=== PATIENT | female | born 2000 | race Caucasian/White ===

== ENCOUNTER 2019-01-02 06:45 | Emergency (ER) | payer OTHER ==
[~2019-01-02] VITALS: Ht 172.7 cm; Wt 71.7 kg
[2019-01-02] MEDS ORDERED: NS 1,000 ML IV ONE (07:15)
[2019-01-02 07:45] LABS: BASO # 0.1 10^3/uL (0.0-0.2); BASO % 1.2 % (0.0-1.0); EOS # 0.4 10^3/uL (0.0-0.50); EOS % 5.7 % (0.0-3.0); HEMATOCRIT 39.9 % (36.0-47.0); HEMOGLOBIN 13.2 g/dl (12.0-15.5); LYMPH # 2.3 10^3/uL (1.5-6.5); MEAN CORPUSCULAR HEMOGLOBIN 28.9 pg (27.0-33.0); MEAN CORPUSCULAR HGB CONC 33.1 g/dl (32.0-36.5); MEAN CORPUSCULAR VOLUME 87.3 fl (80.0-96.0); MONO # 0.5 10^3/uL (0.0-0.8); MONO % 6.5 % (0.0-5.0); NEUTROPHILS # 4.1 10^3/uL (1.8-7.7); NEUTROPHILS % 55.2 % (36.0-66.0); PLATELET COUNT, AUTOMATED 234 10^3/uL (150-450); RED BLOOD COUNT 4.57 10^6/uL (4.00-5.40); WHITE BLOOD COUNT 7.4 10^3/uL (4.0-10.0)
--- NOTE | 2019-01-02 08:01 | REP ---
Chest x-ray: Two views. History: Chest pain. Findings: The lungs are well inflated and clear. No infiltrate is seen. Pleural angles are sharp. Heart size is normal. No significant bony abnormality is appreciated. Impression: Negative chest x-ray. Electronically Signed by Juno Moore MD 01/02/2019 07:52 A
[2019-01-02 09:32] LABS: ALBUMIN 4.2 GM/DL (3.2-5.2); ALT/SGPT 28 U/L (12-78); BILIRUBIN,DIRECT < 0.1 MG/DL (0.0-0.2); BILIRUBIN,TOTAL 0.4 MG/DL (0.2-1.0); BLOOD UREA NITROGEN 19 MG/DL (7-18); CALCIUM LEVEL 8.8 MG/DL (8.5-10.1); CARBON DIOXIDE LEVEL 28 MEQ/L (21-32); CHLORIDE LEVEL 108 MEQ/L (98-107); CPK CREATINE PHOSPHOKINASE 107 U/L (26-192); CREATININE FOR GFR 0.94 MG/DL (0.55-1.30); FREE T4 0.94 NG/DL (0.78-1.33); GLUCOSE, FASTING 93 MG/DL (70-100); LIPASE 132 U/L (73-393); MB/CK RELATIVE INDEX 1.96 (< OR =4); POTASSIUM SERUM 3.7 MEQ/L (3.5-5.1); SODIUM LEVEL 140 MEQ/L (136-145); TOTAL PROTEIN 7.5 GM/DL (6.4-8.2); TROPONIN I < 0.02 NG/ML (< 0.10)
[2019-01-02 09:57] VITALS: BP 117/66
--- NOTE | 2019-01-03 21:41 | ECGEPIP ---
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
== END 2019-01-02 09:59 | disposition home or self-care (01) ==
LOC: M ED 06:45
DX: R07.89 Other chest pain (principal); R00.1 Bradycardia, unspecified; I45.19 Other right bundle-branch block

== ENCOUNTER 2021-05-01 17:02 | Emergency (ER) | payer OTHER ==
[~2021-05-01] VITALS: Ht 172.7 cm; Wt 80.1 kg
[2021-05-01 17:54] LABS: BILIRUBIN, URINE MANUAL NEGATIVE (NEGATIVE); GLUCOSE, URINE (UA) MANUAL NEGATIVE (NEGATIVE); KETONE, URINE MANUAL NEGATIVE (NEGATIVE); UROBILINOGEN, URINE MANUAL NORMAL (NORMAL)
[2021-05-01 17:57] LABS: BACTERIA, URINE NONE SEEN; HYALINE CAST, URINE NONE SEEN /lpf (0-1); RBC, URINE 0-1 /hpf (0-3); SQUAMOUS EPITHELIAL CELL URINE SMALL AMOUNT /hpf (SMALL AMT)
[2021-05-01] MEDS ORDERED: NS 1,000 ML IV ONE (20:15)
[2021-05-01] MEDS ORDERED: MORPHINE 4 MG/ML 1ML VIAL/SYRINGE (J2270) IV ONE (20:15)
[2021-05-01 20:57] LABS: BASO # 0.1 10^3/uL (0.0-0.2); BASO % 0.8 % (0.0-1.0); EOS # 0.1 10^3/uL (0.0-0.5); HEMOGLOBIN 13.9 g/dl (12.0-15.5); LYMPH # 2.8 10^3/uL (1.5-5.0); LYMPH % 36.5 % (24.0-44.0); MEAN CORPUSCULAR HEMOGLOBIN 30.3 pg (27.0-33.0); MEAN CORPUSCULAR HGB CONC 34.8 g/dl (32.0-36.5); MEAN CORPUSCULAR VOLUME 87.3 fl (80.0-96.0); MONO # 0.6 10^3/uL (0.0-0.8); MONO % 7.5 % (2.0-8.0); NEUTROPHILS # 4.2 10^3/uL (1.5-8.5); NEUTROPHILS % 54.1 % (36.0-66.0); PLATELET COUNT, AUTOMATED 264 10^3/uL (150-450); RED BLOOD COUNT 4.58 10^6/uL (4.00-5.40); WHITE BLOOD COUNT 7.8 10^3/uL (4.0-10.0)
[2021-05-01] MEDS ORDERED: ISOVUE-370 76% 100ML VIAL As Ordered ONE (21:27)
[2021-05-01 21:30] LABS: ALBUMIN 4.9 GM/DL (3.2-5.2); BILIRUBIN,DIRECT 0.2 MG/DL (0.0-0.2); TOTAL PROTEIN 7.8 GM/DL (6.4-8.2)
[2021-05-01 21:51] VITALS: BP 125/66
[2021-05-01] MEDS ORDERED: KETOROLAC 30 MG/ML 1ML VIAL IV ONE (23:25)
== END 2021-05-01 23:52 | disposition home or self-care (01) ==
LOC: M ED 17:02
DX: R10.31 Right lower quadrant pain (principal); Z87.442 Personal history of urinary calculi
CPT/HCPCS: 74177; 80047; 80076; 81000; 81015; 83690; 84702; 85025; 87086; 96361; 96374; 96375; 99284; J1885; J2270; Q9967